=== PATIENT | female | born 1990 | race Two or more races ===

== ENCOUNTER 2021-07-03 09:26 | Inpatient (IN) | payer OTHER ==
[~2021-07-03] VITALS: Ht 157.5 cm; Wt 71.7 kg
== END 2021-07-14 13:30 | disposition home or self-care (01) | DRG 807 ==
LOC: LDR 07-12 05:23 → OB/GYN 07-12 05:23 → LDR 07-12 15:15 → OB/GYN 07-13 14:13
PROVIDERS: ADMIT Obstetrics & Gynecology; ATTEND Obstetrics & Gynecology
PROC: 10E0XZZ Delivery of Products of Conception, External Approach (ICD-10-PCS; principal; 2021-07-12)
PROC: 0HQ9XZZ Repair Perineum Skin, External Approach (ICD-10-PCS; 2021-07-12)
PROC: 10907ZC Drainage of Amniotic Fluid, Therapeutic from Products of Conception, Via Natural or Artificial Opening (ICD-10-PCS; 2021-07-12)
PROC: 4A1HXFZ Monitoring of Products of Conception, Cardiac Rhythm, External Approach (ICD-10-PCS; 2021-07-12)
DX: O70.0 First degree perineal laceration during delivery (principal); Z37.0 Single live birth; Z3A.39 39 weeks gestation of pregnancy